=== PATIENT | female | born 1945 | race Caucasian/White ===

== ENCOUNTER 2017-11-14 15:11 | Outpatient (CLI) | payer MEDICARE | END 2017-11-14 15:12 | disposition home or self-care (01) | LOC: BICMAMMO 15:11 | PROVIDERS: ATTEND Internal Medicine Rheumatology | DX: M81.0 Age-related osteoporosis without current pathological fracture (principal) | CPT/HCPCS: 77080 ==

== ENCOUNTER 2019-08-02 09:55 | Day surgery (SDC) | payer MEDICARE ==
[2019-07-30 15:46] VITALS: BMI 34.5
--- NOTE | 2019-08-02 10:49 | RAD ---
LUMBAR SPINE 3 VIEWS: HISTORY: Preprocedure radiograph. COMPARISON: None. FINDINGS: Diffuse bone mineralization. T12 vertebroplasty change is noted. Lumbar spine vertebral body height is maintained. No fracture. 2.8 mm of anterolisthesis of L4 upon L5. 5.5 mm anterolisthesis of L5 upon S1. Mild hypertrophic tovar ges of posterior elements at L4-L5 and L5-S1. Atherosclerosis of the aorta is noted. The infrarenal abdominal aorta is slightly prominent and measu res 2.8 cm in the anterior and posterior dimension. IMPRESSION: 1. No evidence of an acute lumbar spine fracture. 2. Grade 1 anterolisthesis of L4 upon L5 and L5 upon S1. 3. Previous T12 vertebroplasty. 4. Upper normal AP diameter of the abdominal aorta, incompletely evaluated. CODE T Transcribed Date/Time: 08/02/2019 11:49 AM
--- NOTE | 2019-08-02 14:00 | MRI ---
MRI OF LUMBAR SPINE PERFORMED WITHOUT CONTRAST ENHANCEMENT: HISTORY: Low back pain extending to the left buttocks. History of previous surgeries. Kyphoplasty of T12. FINDINGS: The lumbar vertebral bodies show osteoporotic-type cuffing to the superior and inferior end plates of L1 and L3. Also some slight cupping to the superior end plate of L2. Kyphoplasty changes and compr ession changes involving the inferior end plate of T12 were noted. None of these changes show any ed keri change on the STIR sequence. A minimal spondylolisthesis of L4 on L5 is noted at 3-4 mm. There is no significant periaortic adenopathy and the visualized kidneys are normal. T11-12: Unremarkable. T12-L1: Some very minimal bony retropulsion to the posterior inferior margin of T12, but no canal st enosis or foraminal narrowing. L1-2: Some minimal disk bulge at this level. No significant canal or foraminal stenosis. L2-3: Facet and ligamentous hypertrophic changes are associated with some borderline canal narrowing . L3-4: There is a mild to moderate degree of canal narrowing at this level. This is mainly related t o prominent degenerative facet changes. There is a disk bulge present. Borderline right-sided hope inal narrowing. L4-5: Mild to moderate canal narrowing is also seen at this level, again mainly related to the facet and ligamentous hypertrophic changes. A very minimal spondylolisthesis is present and some mild lef t foraminal narrowing. L5-S1: Prominent degenerative facet changes. There is fluid seen in the facet joints. There is a v nicole minimal spondylolisthesis at this level. No foraminal narrowing on the right. Borderline forami nal narrowing on the left. IMPRESSION: Areas of canal and foraminal narrowing as described above. POS: [facility]
== END 2019-08-02 12:55 | disposition home or self-care (01) ==
LOC: SDC/OP 09:55
PROVIDERS: ATTEND Family Medicine
DX: M43.16 Spondylolisthesis, lumbar region (principal); M43.17 Spondylolisthesis, lumbosacral region; M48.061 Spinal stenosis, lumbar region without neurogenic claudication; M48.07 Spinal stenosis, lumbosacral region; G89.4 Chronic pain syndrome; E78.00 Pure hypercholesterolemia, unspecified; I10 Essential (primary) hypertension; K21.9 Gastro-esophageal reflux disease without esophagitis; M06.9 Rheumatoid arthritis, unspecified; J44.9 Chronic obstructive pulmonary disease, unspecified; M19.90 Unspecified osteoarthritis, unspecified site; F32.9 Major depressive disorder, single episode, unspecified; Z79.899 Other long term (current) drug therapy; Z87.442 Personal history of urinary calculi; Z88.8 Allergy status to other drugs, medicaments and biological substances; Z91.041 Radiographic dye allergy status
CPT/HCPCS: 72100; 72148

== ENCOUNTER 2020-07-04 12:08 | Outpatient (CLI) | payer MEDICARE ==
--- NOTE | 2020-07-04 12:49 | RAD ---
2 views of the chest 07/04/2020 COMPARISON: 10/29/2018 HISTORY: Shortness of breath, dyspnea FINDINGS: Increased linear interstitial density and pulmonary hyperinflation noted with emphysematous changes suspected in bilateral lung apices. Findings are suspicious for COPD. There is no pneumothorax, pleural fluid, focal consolidation, or alveolar edema. There is evidence of prior kyphoplasty at the thoracolumbar junction. IMPRESSION: Chronic findings as detailed above. No radiographic evidence of acute cardiopulmonary dis ease.
== END 2020-07-04 12:09 | disposition home or self-care (01) ==
LOC: BICRAD 12:08
PROVIDERS: ATTEND Internal Medicine Critical Care Medicine
DX: R06.00 Dyspnea, unspecified (principal); R91.8 Other nonspecific abnormal finding of lung field; Z98.890 Other specified postprocedural states
CPT/HCPCS: 71046

== ENCOUNTER 2020-07-05 11:00 | Outpatient (CLI) | payer MEDICARE ==
--- NOTE | 2020-07-05 11:55 | BD ---
DEXA bone density examination HISTORY: 74-year-old postmenopausal female for screening COMPARISON: None FINDINGS: L1--bone mineral density 0.967 g/sq cm; T score -0.2 L2--bone mineral density 0.985 g/sq cm; T score -0.4 L3--bone mineral density 0.976 g/sq cm; T score -1.0 L4--bone mineral density 1.053 g/sq cm; T score -0.1 Total L1-L4--bone mineral density 0.999 g/sq cm; T score -0.4 Right femoral neck--bone mineral density0.6 g/sq cm; T score -2.2 Total proximal left femur--bone mineral density 0.646 g/sq cm ; T score -2.4 There is evidence of vertebroplasty changes involving the T12 vertebral body. Degenerative changes ar e seen in the lumbar spine which may overestimate the bone mineral density and subsequently under estimate the risk for fracture. IMPRESSION: 1. Normal bone mineralization of the lumbar spine. Degenerative changes in the lumbar spine under est imate the risk for fracture. 2. Moderate osteopenia right femoral neck indicating 4 fold increased risk for fracture..
== END 2020-07-05 11:01 | disposition home or self-care (01) ==
LOC: BICMAMMO 11:00
PROVIDERS: ATTEND Internal Medicine Rheumatology
DX: M81.0 Age-related osteoporosis without current pathological fracture (principal); M85.852 Other specified disorders of bone density and structure, left thigh; M47.816 Spondylosis without myelopathy or radiculopathy, lumbar region
CPT/HCPCS: 77080